=== PATIENT | female | born 1980 | race American Indian/Alaskan Native ===

== ENCOUNTER 2016-12-10 16:31 | Emergency (ER) | payer SELFPAY ==
[2016-12-10] MEDS ORDERED: XYLOCAINE 2% INFILTRATI ONE (18:15)
[2016-12-10] MEDS ORDERED: NORCO 5/325 PO ONE (18:16)
[2016-12-10] MEDS ORDERED: BOOSTRIX IM ONE (18:16)
[2016-12-10] MEDS ORDERED: MOTRIN PO ONE (18:17)
[2016-12-10] MEDS ORDERED: NACL 0.9% IR ONE (18:17)
[2016-12-10] MEDS ORDERED: TRIPLE ANTIBIOTIC TP ONE (18:22)
[2016-12-10] MEDS ORDERED: NACL 0.9% 1,000 ML IR ONE (18:22)
--- NOTE | 2016-12-10 18:22 | Emergency Department Report ---
ED Upper Extremity Inj HPI - General Chief Complaint: Extremity Injury, Upper Stated Complaint: LAC TO FINGER/SLAMMED IN DOOR Time Seen by Provider: 12/10/16 18:09 Source: patient Mode of arrival: Ambulatory Limitations: No Limitations - History of Present Illness Initial Comments: 36-year-old female no significant past medical history presents with complaint of laceration to tip of distal left index finger, patient states she accidentally slammed Garage door on tip of left index finger at home today. No other injury sustained, only injured left index finger. Visible laceration at tip of left index finger just beyond the distal interphalangeal joint. Goes across the tip of pulp finger. Patient is not aware of tetanus status. States it happened approximately 2 hours ago, accidental injury. Finger nail intact but visible subungual hematoma underneath. Complaint: Injury to:: left, finger Onset/Timin -: hour(s) Other Extremity Injury: Fingers: Left (distal left finger laceration) Other Injuries: none Handedness: right Place: home Severity scale (0 -10): 7 Improves With: cold therapy, immobilization Worsens With: movement of extremity Context: direct blow, crush Associated Symptoms: denies other symptoms Treatments Prior to Arrival: bandage - Related Data Previous Rx's Medication Instructions Recorded Last Taken Type Acetaminophen/Codeine [Tylenol #3] 1 tab PO Q6H PRN #20 tab 12/11/15 Unknown Rx Ibuprofen [Motrin 800 MG tab] 800 mg PO Q8HR PRN #30 tablet 12/11/15 Unknown Rx Clindamycin [Clindamycin CAP] 300 mg PO Q8H #21 cap 12/10/16 Unknown Rx HYDROcodone/APAP 5-325 [[place] 1 each PO Q6HR PRN #6 tablet 12/10/16 Unknown Rx 5/325] Ibuprofen [Motrin] 600 mg PO Q8H PRN #25 tablet 12/10/16 Unknown Rx Neomycn/Baci Zn/Pmyx Bs/Pramox 14 gm TP BID #1 oint...g. 12/10/16 Unknown Rx [Triple Antibioti-Pain Rlf Oint] Allergies Allergy/AdvReac Type Severity Reaction Status Date / Time amoxicillin Allergy Rash Verified 12/11/15 20:09 ED Review of Systems ROS: Stated complaint: LAC TO FINGER/SLAMMED IN DOOR Other details as noted in HPI Constitutional: denies: chills, fever Eyes: denies: eye pain, eye discharge, vision change ENT: denies: ear pain, throat pain Respiratory: denies: cough, shortness of breath, wheezing Cardiovascular: denies: chest pain, palpitations Endocrine: no symptoms reported Gastrointestinal: denies: abdominal pain, nausea, diarrhea Genitourinary: denies: urgency, dysuria, discharge Musculoskeletal: denies: back pain, joint swelling, arthralgia Skin: denies: rash, lesions Neurological: denies: headache, weakness, paresthesias Psychiatric: denies: anxiety, depression Hematological/Lymphatic: denies: easy bleeding, easy bruising ED Past Medical Hx - Social History Smoking Status: Never Smoker Substance Use Type: Alcohol - Medications Home Medications: Home Medications Medication Instructions Recorded Confirmed Last Taken Type Acetaminophen/Codeine [Tylenol #3] 1 tab PO Q6H PRN #20 tab 12/11/15 Unknown Rx Ibuprofen [Motrin 800 MG tab] 800 mg PO Q8HR PRN #30 tablet 12/11/15 Unknown Rx Clindamycin [Clindamycin CAP] 300 mg PO Q8H #21 cap 12/10/16 Unknown Rx HYDROcodone/APAP 5-325 [[place] 1 each PO Q6HR PRN #6 tablet 12/10/16 Unknown Rx 5/325] Ibuprofen [Motrin] 600 mg PO Q8H PRN #25 tablet 12/10/16 Unknown Rx Neomycn/Baci Zn/Pmyx Bs/Pramox 14 gm TP BID #1 oint...g. 12/10/16 Unknown Rx [Triple Antibioti-Pain Rlf Oint] ED Physical Exam - General Limitations: No Limitations General appearance: alert, in no apparent distress - Head Head exam: Present: atraumatic, normocephalic - Eye Eye exam: Present: normal appearance, PERRL, EOMI - ENT ENT exam: Present: mucous membranes moist - Neck Neck exam: Present: normal inspection - Respiratory Respiratory exam: Present: normal lung sounds bilaterally. Absent: respiratory distress - Cardiovascular Cardiovascular Exam: Present: regular rate, normal rhythm. Absent: systolic murmur, diastolic murmur, rubs, gallop - GI/Abdominal GI/Abdominal exam: Present: soft, normal bowel sounds - Extremities Exam Extremities exam: Present: normal inspection - Expanded Upper Extremity Exam Left Shoulder Exam: Present: normal inspection, full ROM Upper Arm exam: Present: normal inspection, full ROM Elbow exam: Present: normal inspection, full ROM Forearm Wrist exam: Present: normal inspection, full ROM Hand Wrist exam: Present: full ROM (only has limited range of motion at DIP left index finger), tenderness, swelling, laceration (horizontal laceration at pulp of the left distal index finger with subungual hematoma below nail bed approximately 1.5 cm laceration him and no visible bone) Neuro motor exam: Present: wrist extension intact, thumb opposition intact, thumb IP flexion intact, thumb adduction intact, fingers 2-5 abduction intact Neurosensory exam: Present: 2-point discrimination, radial nerve intact Vascular: Present: normal capillary refill - Back Exam Back exam: Present: normal inspection - Neurological Exam Neurological exam: Present: alert, oriented X3 - Psychiatric Psychiatric exam: Present: normal affect, normal mood - Skin Skin exam: Present: warm, dry, intact, normal color. Absent: rash ED Course Vital Signs 12/10/16 17:09 Temperature 97.7 F Pulse Rate 93 H Respiratory 16 Rate Blood Pressure 148/93 O2 Sat by Pulse 97 Oximetry - Laceration /Wound Repair Left Finger Wound Length (cm): 1 Wound's Depth, Shape: superficial Wound Explored: clean Irrigated w/ Saline (ccs): 1,000 Betadine Prep?: Yes Anesthesia: 1% Lidocaine Volume Anesthetic (ccs): 5 Wound Debrided: minimal Wound Repaired With: sutures Suture Size/Type: 5:0, nylon Number of Sutures: 10 Layer Closure?: No Sterile Dressing Applied?: Yes Progress: Digital block performed left index finger. Good anesthesia achieved. 10 nylon sutures placed, 5-0 size. Minimal bleeding procedure tolerated well. Triple antibiotic ointment placed over the laceration site. Small trephination hole made top middle aspect fingernail to relieve the subungual hematoma, 22-gauge needle used to trephinate small hole. Subungual hematoma relieved. Triple antibiotic ointment placed over fingernail and laceration site, distal fingertip covered with gauze and finger splint placed over. ED Medical Decision Making - Medical Decision Making A/P: Fingertip laceration, fingertip fracture, subungual hematoma 1-fingertip laceration sutured, procedure tolerated well. Subungual hematoma drained with a small trephination hole on nail. After draining hematoma distal capillary refill was assessed, less than 1 second. Range of motion PIP DIP MCP fully intact and against resistance. No other signs of trauma and hands, range of motion fully intact hand wrist, opposition thumb to all fingers, no snuffbox tenderness, lumbrical movement intact. 3-Motrin 600 when necessary for pain, short course of Mathias, clindamycin 7 days , tetanus vaccine updated today 4-I advised patient to follow-up in approximately 7-10 days for suture removal in ED. I advised patient to return to the ED for any signs of pus drainage severe swelling, erythema, foul odor emanating from the tip 5- follow-up with primary care doctor. I provided patient with orthopedics referral information. Advised patient that if she experiences any difficulty ranging her finger after sutures are removed to follow-up with orthopedics as this may present damage to the distal tendon. However this is highly unlikely as patient has full range of motion in distal finger at the DIP, PIP, MCP. Critical care attestation.: If time is entered above; I have spent that time in minutes in the direct care of this critically ill patient, excluding procedure time. ED Disposition Clinical Impression: Finger fracture, left Finger laceration Qualifiers: Encounter type: initial encounter Qualified Code(s): S61.219A - Laceration without foreign body of unspecified finger without damage to nail, initial encounter Disposition: DISCHARGED TO HOME OR SELFCARE Is pt being admited?: No Does the pt Need Aspirin: No Condition: Stable Instructions: Finger Laceration (ED), Laceration (ED), Suture Care (ED) Prescriptions: Clindamycin [Clindamycin CAP] 300 mg PO Q8H #21 cap Ibuprofen [Motrin] 600 mg PO Q8H PRN #25 tablet PRN Reason: Pain HYDROcodone/APAP 5-325 [Mathias 5/325] 1 each PO Q6HR PRN #6 tablet PRN Reason: Pain Neomycn/Baci Zn/Pmyx Bs/Pramox [Triple Antibioti-Pain Rlf Oint] 14 gm TP BID #1 oint...g. Referrals: FLAVIO CARDONA MD [Staff Physician] - 3-5 Days MITRA JERRY MD [Staff Physician] - 3-5 Days Forms: Work/School Release Form(ED) Time of Disposition: 20:52
[2016-12-10 21:07] VITALS: BP 112/77
--- NOTE | 2016-12-11 10:12 | XRay Report ---
LEFT FINGER RADIOGRAPHS: INDICATION: Door slammed on fingertip. Evaluate for fracture. COMPARISON: None similar. FINDINGS: An AP view of the left hand with a lateral projection of the index finger demonstrates a horizontal fracture towards the tip/distal aspect of the index finger distal phalanx with separation/lucency/displacement of approximately 2 mm and overlying soft tissue injury as well. No joint involvement. Normal remainder exam. CONCLUSION: Acute fracture involving the distal aspect of left index finger distal phalanx near the tuft, as detailed above. Thank you for the opportunity to participate in this patient's care.
== END 2016-12-10 21:06 | disposition home or self-care (01) ==
LOC: ED 16:31
DX: S62.668A Nondisplaced fracture of distal phalanx of other finger, initial encounter for closed fracture (principal); S61.211A Laceration without foreign body of left index finger without damage to nail, initial encounter; Z88.1 Allergy status to other antibiotic agents; W23.0XXA Caught, crushed, jammed, or pinched between moving objects, initial encounter; Y93.89 Activity, other specified; Y92.89 Other specified places as the place of occurrence of the external cause; Y99.8 Other external cause status
CPT/HCPCS: 90471; 90715; A6250

== ENCOUNTER 2016-12-17 14:29 | Emergency (ER) | payer SELFPAY ==
[2016-12-17 15:43] VITALS: BP 145/99
--- NOTE | 2016-12-17 16:37 | Emergency Department Report ---
Suture/Staple Removal - [facility] Chief Complaint: Laceration/Recheck/Suture Stated Complaint: LEFT FINGER STITCHES BLISTERS Time Seen by Provider: 12/17/16 16:36 When Sutures or Janis Placed: 5-7 Days Ago Wound Location: distal left index finger ED Review of Systems ROS: Stated complaint: LEFT FINGER STITCHES BLISTERS Other details as noted in HPI Constitutional: denies: chills, diaphoresis, fever, malaise, weakness Respiratory: denies: cough, orthopnea, shortness of breath, SOB with exertion, SOB at rest, stridor, wheezing Cardiovascular: denies: chest pain, palpitations, dyspnea on exertion, orthopnea , edema, syncope, paroxysmal nocturnal dyspnea Musculoskeletal: arthralgia (distal left index finger). denies: back pain, joint swelling, myalgia Skin: other (minimal drainage noted from suture incision site). denies: rash, lesions, change in color, change in hair/nails, pruritus Neurological: denies: headache, weakness, numbness, paresthesias, confusion, abnormal gait, vertigo Hematological/Lymphatic: denies: easy bleeding, easy bruising, swollen glands ED Past Medical Hx - Past Medical History Previous Medical History?: Yes Additional medical history: Left index finger injury - Surgical History Past Surgical History?: Yes Additional Surgical History: EYE - Social History Smoking Status: Never Smoker Substance Use Type: Alcohol, Non Opiate Pain, Prescribed - Medications Home Medications: Home Medications Medication Instructions Recorded Confirmed Last Taken Type Acetaminophen/Codeine [Tylenol #3] 1 tab PO Q6H PRN #20 tab 12/11/15 Unknown Rx Ibuprofen [Motrin 800 MG tab] 800 mg PO Q8HR PRN #30 tablet 12/11/15 Unknown Rx Clindamycin [Clindamycin CAP] 300 mg PO Q8H #21 cap 12/10/16 Unknown Rx HYDROcodone/APAP 5-325 [[place] 1 each PO Q6HR PRN #6 tablet 12/10/16 Unknown Rx 5/325] Ibuprofen [Motrin] 600 mg PO Q8H PRN #25 tablet 12/10/16 Unknown Rx Neomycn/Baci Zn/Pmyx Bs/Pramox 14 gm TP BID #1 oint...g. 12/10/16 Unknown Rx [Triple Antibioti-Pain Rlf Oint] Cephalexin [Keflex] 500 mg PO Q12HR #14 cap 12/17/16 Unknown Rx Clindamycin [Clindamycin CAP] 300 mg PO Q8H #21 cap 12/17/16 Unknown Rx HYDROcodone/APAP 5-325 [[place] 1 each PO Q6HR PRN #10 tablet 12/17/16 Unknown Rx 5/325] Suture Removal Exam - Exam General: Vital signs noted. No distress. Alert and acting appropriately. Wound: Yes Tenderness (at the tip of distal left finger index), Yes Drainage ( serosanguineous minimal), No Pathologic Erythema (small maculopapular rash to left proximal index finger), No Pus, No Wound Dehiscence Other Systems: All other systems reviewed and are unremarkable. ED Course Vital Signs 12/17/16 15:39 Temperature 97.6 F Pulse Rate 102 H Respiratory 20 Rate Blood Pressure 145/99 O2 Sat by Pulse 100 Oximetry - Reevaluation(s) Reevaluation #1: 12/17/16 16:[address] Jean Reevaluation #2: 12/17/16 23:17 only removed three sutures, the remaining sutures were not ready for removal ED Recheck MDM - Differential Diagnosis Wound Recheck, Cellultitis Recheck - Medical Decision Making During the course of ED, only three sutures were removed, the remaining seven were not ready for removal. Patient was placed on an additional antibiotic for possible wound infection. She was sent home with prescriptions for [place], Keflex and additional Clindamycin to be taken for 14 days, rather than seven days, instructed to return back to the ED in five days for suture removal and to follow up with Orthopedic this week, the patient verbalized understanding. Critical care attestation.: If time is entered above; I have spent that time in minutes in the direct care of this critically ill patient, excluding procedure time. ED Disposition Clinical Impression: Finger laceration Qualifiers: Encounter type: sequela Qualified Code(s): S61.219S - Laceration without foreign body of unspecified finger without damage to nail, sequela Disposition: DISCHARGED TO HOME OR SELFCARE Is pt being admited?: No Does the pt Need Aspirin: No Condition: Stable Instructions: Laceration (ED), Suture Care (ED) Additional Instructions: Take medication as directed. No drinking, driving or operating heavy machinery while taking pain medication. Return back to the ED in 3 days for suture removal Prescriptions: Clindamycin [Clindamycin CAP] 300 mg PO Q8H #21 cap Cephalexin [Keflex] 500 mg PO Q12HR #14 cap HYDROcodone/APAP 5-325 [[place] 5/325] 1 each PO Q6HR PRN #10 tablet PRN Reason: Pain Referrals: PRIMARY CAREMD [Primary Care Provider] - 3-5 Days FLAVIO CARDONA MD [Staff Physician] - 3-5 Days Forms: Work/School Release Form(ED) Time of Disposition: 16:51
== END 2016-12-17 17:32 | disposition home or self-care (01) ==
LOC: ED 14:29
DX: S61.211S Laceration without foreign body of left index finger without damage to nail, sequela (principal); X58.XXXS Exposure to other specified factors, sequela; Y99.9 Unspecified external cause status; Y92.9 Unspecified place or not applicable
CPT/HCPCS: 99282

== ENCOUNTER 2016-12-22 19:33 | Emergency (ER) | payer SELFPAY ==
--- NOTE | 2016-12-23 01:16 | Emergency Department Report ---
Suture/Staple Removal - [facility] Chief Complaint: Laceration/Recheck/Suture Stated Complaint: STITCHES REMOVAL Time Seen by Provider: 12/23/16 01:11 Wound Location: 7 suture removal of left 2 nd digit ED Review of Systems ROS: Stated complaint: STITCHES REMOVAL Other details as noted in HPI Constitutional: denies: chills, fever Eyes: denies: eye pain, eye discharge, vision change ENT: denies: ear pain, throat pain Respiratory: denies: cough, shortness of breath, wheezing Cardiovascular: denies: chest pain, palpitations Endocrine: no symptoms reported Gastrointestinal: denies: abdominal pain, nausea, diarrhea Genitourinary: denies: urgency, dysuria, discharge Musculoskeletal: arthralgia. denies: back pain, joint swelling Skin: other (blister to left 2nd digit). denies: rash, lesions Neurological: denies: headache, weakness, paresthesias Psychiatric: denies: anxiety, depression Hematological/Lymphatic: denies: easy bleeding, easy bruising ED Past Medical Hx - Past Medical History Additional medical history: Left index finger injury - Surgical History Additional Surgical History: EYE - Social History Smoking Status: Never Smoker Substance Use Type: Alcohol, Non Opiate Pain, Prescribed - Medications Home Medications: Home Medications Medication Instructions Recorded Confirmed Last Taken Type Acetaminophen/Codeine [Tylenol #3] 1 tab PO Q6H PRN #20 tab 12/11/15 Unknown Rx Ibuprofen [Motrin 800 MG tab] 800 mg PO Q8HR PRN #30 tablet 12/11/15 Unknown Rx Clindamycin [Clindamycin CAP] 300 mg PO Q8H #21 cap 12/10/16 Unknown Rx HYDROcodone/APAP 5-325 [[place] 1 each PO Q6HR PRN #6 tablet 12/10/16 Unknown Rx 5/325] Ibuprofen [Motrin] 600 mg PO Q8H PRN #25 tablet 12/10/16 Unknown Rx Neomycn/Baci Zn/Pmyx Bs/Pramox 14 gm TP BID #1 oint...g. 12/10/16 Unknown Rx [Triple Antibioti-Pain Rlf Oint] Cephalexin [Keflex] 500 mg PO Q12HR #14 cap 12/17/16 Unknown Rx Clindamycin [Clindamycin CAP] 300 mg PO Q8H #21 cap 12/17/16 Unknown Rx HYDROcodone/APAP 5-325 [[place] 1 each PO Q6HR PRN #10 tablet 12/17/16 Unknown Rx 5/325] Ibuprofen [Motrin] 800 mg PO Q8HR PRN #30 tablet 12/23/16 Unknown Rx Suture Removal Exam - Exam General: Vital signs noted. No distress. Alert and acting appropriately. Wound: Yes Drainage, Yes Pus, No Pathologic Erythema, No Tenderness, No Wound Dehiscence Other Systems: All other systems reviewed and are unremarkable. ED Course Vital Signs 12/22/16 19:42 Temperature 98.1 F Pulse Rate 111 H Respiratory 18 Rate Blood Pressure 153/97 O2 Sat by Pulse 94 Oximetry ED Recheck MDM - Core Measures AMI Core Measures Followed: No - Differential Diagnosis Suture/Staple Removal - Medical Decision Making suture removal from the left 2 nd digit pt has splint on and state she has been unable to see orthopedic for fracture of left index finger due to financial issue pt request prescription for motrin 800 state that she lost the last prescription and unable to take norco due to drowsiness Critical care attestation.: If time is entered above; I have spent that time in minutes in the direct care of this critically ill patient, excluding procedure time. ED Disposition Clinical Impression: Visit for suture removal Disposition: DISCHARGED TO HOME OR SELFCARE Is pt being admited?: No Does the pt Need Aspirin: No Condition: Stable Instructions: Suture Removal (ED) Additional Instructions: follow up with orthopedic Continue to take clindamycin as prescribed Prescriptions: Ibuprofen [Motrin] 800 mg PO Q8HR PRN #30 tablet PRN Reason: Pain Time of Disposition:
[2016-12-23 01:17] VITALS: BP 129/86
== END 2016-12-23 01:47 | disposition home or self-care (01) ==
LOC: ED 19:33
DX: Z48.02 Encounter for removal of sutures (principal); Z53.21 Procedure and treatment not carried out due to patient leaving prior to being seen by health care provider

== ENCOUNTER 2017-03-07 11:17 | Emergency (ER) | payer SELFPAY ==
[2017-03-07 11:53] VITALS: BP 134/89
[2017-03-07 12:48] LABS: Alanine Aminotransferase 9 units/L (7-56); Albumin 3.9 g/dL (3.9-5); Albumin/Globulin Ratio 0.8 %; Alkaline Phosphatase 64 units/L (35-129); Anion Gap 16 mmol/L; Bilirubin,Total 0.4 mg/dL (0.1-1.2); Blood Urea Nitrogen 6 mg/dL (7-17); Calcium 9.4 mg/dL (8.4-10.2); Carbon Dioxide 22 mmol/L (22-30); Chloride 94.4 mmol/L (98-107); Glucose 102 mg/dL (65-100); Lipase 23 units/L (13-60); Potassium 3.8 mmol/L (3.6-5.0); Sodium 129 mmol/L (137-145); Total Protein 8.6 g/dL (6.3-8.2)
[2017-03-07 12:51] LABS: Basophils % (Auto) 0.9 % (0.0-1.8); Eosinophils % (Auto) 2.9 % (0.0-4.3); Mean Corpuscular HGB Conc 33 % (30-34); Mean Corpuscular Hemoglobin 28 pg (28-32); Mean Corpuscular Volume 84 fl (79-97); Platelet Count 335 K/mm3 (140-440); Red Blood Count 4.99 M/mm3 (3.65-5.03); Red Cell Distribution Width 14.6 % (13.2-15.2); White Blood Count 10.6 K/mm3 (4.5-11.0)
[2017-03-07 13:24] LABS: Bilirubin,Urine NEG (Negative); Blood,Urine NEG (Negative); Ketones,Urine 20 mg/dL (Negative); Leukocyte Esterase,Urine NEG (Negative); Nitrite,Urine NEG (Negative); Protein,Urine <15 mg/dL mg/dL (Negative); Urobilinogen,Urine < 2.0 mg/dL (<2.0)
== END 2017-03-07 16:05 | disposition left against medical advice (07) ==
LOC: ED 11:17
DX: R10.9 Unspecified abdominal pain (principal); R11.10 Vomiting, unspecified; Z53.21 Procedure and treatment not carried out due to patient leaving prior to being seen by health care provider
CPT/HCPCS: 36415; 80053; 81001; 81025; 83690; 85025